=== PATIENT | male | born 1950 | race Caucasian/White ===

== ENCOUNTER 2017-01-01 15:58 | Inpatient (IN) | payer OTHER, MEDICARE ==
[2017-01-01] MEDS ORDERED: Sodium Chloride 0.9% 1,000 ML IV ONE ×2 (16:12→20:06)
--- NOTE | 2017-01-01 16:21 | ED Physician Chart ---
Chief Complaint/HPI - Patient Information Date Seen:: 01/01/17 Time Seen:: 16:14 Chief Complaint:: weakness History of Present Illness:: pt had a fall last week..had back pain over weekend. saw pmd friday and rxd prednisone and m relaxer meds. this afternoon legs feel weak. he has no cp. no WELLS. pt has hx of htn and a chf episode 6 yrs ago but no a fib hx and no known mi hx. 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 also t complains of percieved burning pain at rt hip radiates around to ant thigh cw sciatica pain Historian:: Patient Review of Systems - Review of Systems General/Constitutional: No fever, No chills, No weight loss, No weakness, No diaphoresis, No edema, No loss of appetite Skin: No skin lesions, No rash, No bruising Head: No headache, No light-headedness Eyes: No loss of vision, No pain, No diplopia ENT: No earache, No nasal drainage, No sore throat, No tinnitus Neck: No neck pain, No swelling, No thyromegaly, No stiffness, No mass noted Cardio Vascular: No chest pain, No palpitations, No PND, No orthopnea, No edema Pulmonary: No SOB, No cough, No sputum, No wheezing GI: No nausea, No vomiting, No diarrhea, No pain, No melena, No hematochezia, No constipation, No hematemesis G/U: No dysuria, No frequency, No hematuria Musculoskeletal: No bone or joint pain, No back pain, No muscle pain Endocrine: No polyuria, No polydipsia Psychiatric: No prior psych history, No depression, No anxiety, No suicidal ideation Hematopoietic: No bruising, No lymphadenopathy Allergic/Immuno: No urticaria, No angioedema Neurological: No syncope, No focal symptoms, Weakness, Paresthesia (chronic numbness in b legs), No headache, No seizure, Dizziness, No confusion, No vertigo Past Medical History - Past Medical History Past Medical History: HTN, CHF Social History: Medication: Reviewed Family Medical History - Family Member Mother History Unknown: Yes Physical Exam - Physical Examination General/Constitutional: Awake, Well-developed, well-nourished, Alert, No distress, GCS 15, Non-toxic appearing, Ambulatory Other Gen/Cons comments:: obese man appears ok at rest. monitor shows hr 160 regular narrow complex color ok. chronic paresthesia of distal legs/ft Head: Atraumatic Eyes: Lids, conjuctiva normal, PERRL, EOMI Skin: Nl inspection, No rash, No skin lesions, No ecchymosis, Well hydrated, No lymphadenopathy ENMT: External ears, nose nl, Nasal exam nl, Lips, teeth, gums nl Neck: Nontender, Full ROM w/o pain, No JVD, No nuchal rigidity, No bruit, No mass, No stridor Respiratory: Nl effort/Exclusion, Clear to Auscultation, No Wheeze/Rhonchi/Rales Cardio Vascular: RRR, No murmur, gallop, rubs, NL S1 S2 GI: No tenderness/rebounding/guarding, No organomegaly, No hernia, Normal BS's, Nondistended, No mass/bruits, No McBurney tenderness : No CVA tenderness Extremities: No tenderness or effusion, Full ROM, normal strength in all extremities, No edema, Normal digits & nails Other Extremities comments:: percieved pain at rt hip radiates around to ant thigh cw sciatica pain Neuro/Psych: Alert/oriented, DTR's symmetric, Normal sensory exam, Normal motor strength, Judgement/insight normal, Mood normal, Normal gait, No focal deficits Misc: normal gait, Normal back, No paraspinal tenderness Labs/Radiology/EKG Results - Lab Results Results: Laboratory Tests 01/01/17 01/01/17 01/01/17 16:25 16:25 16:25 WBC 8.9 RBC 5.46 Hgb 18.0 H Hct 52.0 H MCV 95.2 MCH 32.9 H MCHC Differential 34.6 RDW 13.2 Plt Count 128 L MPV 10.9 Neutrophils % 71.7 Lymphocytes % 21.6 Monocytes % 5.9 Eosinophils % 0.7 Basophils % 0.1 PT INR PTT (Actin FS) Sodium 137 Potassium 3.3 L Chloride 104 Carbon Dioxide 24.5 Anion Gap 11.8 BUN 31 H Creatinine 1.1 Est GFR ( Amer) > 60.0 Est GFR (Non-Af Amer) > 60.0 BUN/Creatinine Ratio 28.2 Glucose 120 H Calcium 9.9 Total Bilirubin 1.8 H AST 37 ALT 50 Alkaline Phosphatase 93 Troponin I 0.01 Total Protein 7.5 Albumin 4.2 Globulin 3.3 Albumin/Globulin Ratio 1.3 01/01/17 16:25 WBC RBC Hgb Hct MCV MCH MCHC Differential RDW Plt Count MPV Neutrophils % Lymphocytes % Monocytes % Eosinophils % Basophils % PT 13.6 H INR 1.29 PTT (Actin FS) 24.1 L Sodium Potassium Chloride Carbon Dioxide Anion Gap BUN Creatinine Est GFR ( Amer) Est GFR (Non-Af Amer) BUN/Creatinine Ratio Glucose Calcium Total Bilirubin AST ALT Alkaline Phosphatase Troponin I Total Protein Albumin Globulin Albumin/Globulin Ratio - Radiology Results Results: cxr nad - EKG Interpretations EKG Time:: 16:25 Rate & Rhythm: afib rvr 143 [place]: 224 Intervals: qtc 423 Assessment - Assessment Critical Care Time: 80 Excludes all billable procedures: Yes This condition life threatening/high prob of deterioration: Yes - Procedures Procedures:: adenosine 6mg iv while on monitor...then 12 adenosine iv...pt slowed rate enough to see underlying a fib. diltiazem bolus 20 and gtt at 5mg/hr ordered ....has improved rate down to 120s..pt tolerating this very well. (on further dw staff pt had been given 20 dilt bolus but gtt was not started due to code in other dept...rebolused 10 mg dilt and gtt started at 7;30pm)...pt doing well. ED Septic Shock - . Is Septic Shock (SBP<90, OR Lactate>4 mmol\L) present?: No Reassessment (Disposition) - Reassessment Reassessment Condition:: Improved - Diagnosis Diagnosis:: 1 afib w rvr 2 rt leg sciatic pain - Patient Disposition Admitted to:: ICU Condition at Disposition:: Improved
[2017-01-01 16:34] LABS: % BASOPHILS 0.1 % (0.0-2.0); % EOSINOPHILS 0.7 % (0.0-5.0); % LYMPHOCYTES 21.6 % (20.0-50.0); % MONOCYTES 5.9 % (2.0-10.0); % NEUTROPHILS 71.7 % (40.0-80.0); MEAN CELL VOLUME 95.2 fl (80-99); MEAN CORPUSCULAR HEMOGLOBIN 32.9 pg (27.0-31.0); MEAN CORPUSCULAR HGB CONC 34.6 pg (28.0-36.0); MEAN PLATELET VOLUME 10.9 fl; NEUTROPHILE ABSOLUTE 6.4 Th/cmm (1.8-8.0); PLATELET COUNT 128 Th/cmm (150-400); RED BLOOD COUNT 5.46 Mil/cmm (3.80-5.80); RED CELL DISTRIBUTION WIDTH 13.2 % (11.5-20.0); WHITE BLOOD COUNT 8.9 Th/cmm (4.8-10.8)
[2017-01-01 16:47] LABS: INR 1.29 (0.5-1.4); PROTHROMBIN TIME (TEST) 13.6 SECONDS (9.5-11.5)
[2017-01-01 16:50] LABS: ALB/GLOB RATIO 1.3 (1.0-1.8); ALKALINE PHOSPHATASE 93 U/L (34-104); ANION GAP 11.8 (7.0-16.0); BILIRUBIN,TOTAL 1.8 mg/dL (0.3-1.0); BUN - UREA NITROGEN 31 mg/dL (7-25); BUN/CREATININE RATIO 28.2; CALCIUM SERUM 9.9 mg/dL (8.6-10.3); CARBON DIOXIDE 24.5 mEq/L (21.0-31.0); CHLORIDE 104 mEq/L (98-107); CREATININE - SERUM 1.1 mg/dL (0.7-1.3); GLUCOSE 120 mg/dL (70-105); POTASSIUM SERUM 3.3 mEq/L (3.5-5.1); SGOT 37 U/L (13-39); SGPT/ALT 50 U/L (7-52); SODIUM SERUM 137 mEq/L (136-145)
[2017-01-01] MEDS ORDERED: Diltiazem 5 mg/mL 5mL Vial IVP STA ×2 (17:05→20:05)
[2017-01-01] MEDS ORDERED: Diltiazem 5 mg/mL 5mL Vial IVP ONE ×2 (17:52→20:11)
[2017-01-01] MEDS ORDERED: Diltiazem 5 mg/mL 25mL Vial IV ONE (20:07)
[2017-01-01] MEDS ORDERED: Morphine Sulfate 2 mg/mL 1mL Syr IVP PRN (20:20)
[2017-01-01] MEDS ORDERED: Diltiazem 5 mg/mL 5mL Vial IVP PRN (20:20)
[2017-01-01] MEDS ORDERED: Ipratropium Neb 0.5 mg/2.5 mL UD IH PRN (20:20)
[2017-01-01] MEDS ORDERED: Maalox 30 mL Cup PO PRN (20:20)
[2017-01-01] MEDS ORDERED: Potassium Chloride 20 mEq ER Tab PO ONE ×2 (20:20→20:44)
[2017-01-01] MEDS ORDERED: Albuterol Nebulizer 2.5mg/3mL IH PRN (20:20)
[2017-01-01] MEDS ORDERED: D5-0.45NS 1,000 ML IV SCH (20:30)
[2017-01-01] MEDS ORDERED: Pneumococcal Vaccine 0.5 mL Vial IM ONE (23:12)
[2017-01-02] MEDS: Hydrocodone/APAP 5mg/325mg Tab PO PRN ×3 (04:45→20:34)
[2017-01-02 06:05] LABS: % EOSINOPHILS 2.2 % (0.0-5.0); % LYMPHOCYTES 41.2 % (20.0-50.0); % MONOCYTES 9.6 % (2.0-10.0); HEMOGLOBIN 16.2 gm/dL (12.6-17.4); MEAN CELL VOLUME 93.9 fl (80-99); MEAN CORPUSCULAR HEMOGLOBIN 32.9 pg (27.0-31.0); MEAN PLATELET VOLUME 11.4 fl; NEUTROPHILE ABSOLUTE 2.3 Th/cmm (1.8-8.0); RED BLOOD COUNT 4.92 Mil/cmm (3.80-5.80); RED CELL DISTRIBUTION WIDTH 13.4 % (11.5-20.0)
[2017-01-02 06:43] LABS: ANION GAP 7.4 (7.0-16.0); BUN - UREA NITROGEN 26 mg/dL (7-25); BUN/CREATININE RATIO 23.6; CALCIUM SERUM 9.2 mg/dL (8.6-10.3); CARBON DIOXIDE 28.8 mEq/L (21.0-31.0); CHLORIDE 106 mEq/L (98-107); CREATININE - SERUM 1.1 mg/dL (0.7-1.3); GLUCOSE 93 mg/dL (70-105); MAGNESIUM 2.4 mg/dL (1.9-2.7); POTASSIUM SERUM 3.2 mEq/L (3.5-5.1); SODIUM SERUM 139 mEq/L (136-145)
[2017-01-02 07:24] LABS: HEMATOCRIT 46.2 % (39.0-49.0); PLATELET COUNT 80 Th/cmm (150-400)
--- NOTE | 2017-01-02 10:26 | Diagnostic Imaging Report ---
CHEST X-RAY: AP view INDICATION: Tachycardia COMPARISON: None FINDINGS: There is no focal consolidation or pleural effusions The heart is normal in size. The osseous structures demonstrate no acute abnormalities. IMPRESSION: No focal acute pulmonary process.
--- NOTE | 2017-01-02 10:37 | Diagnostic Imaging Report ---
Pelvis and right hip 2 views Indication: pain Comparison: none Findings: Note exam is limited due to body habitus. No evidence of acute fracture or dislocation. Mild degenerative changes right hip joint are noted. Degenerative changes of the SI joints are also noted. Impression: No evidence of an acute fracture. Mild degenerative changes. In the setting of trauma, if clinical symptoms persist and there is continued concern for an occult fracture, follow up exams in 5-7 days is suggested.
--- NOTE | 2017-01-02 15:34 | Diagnostic Imaging Report ---
CHEST X-RAY: AP view INDICATION: Sepsis COMPARISON: Chest x-ray 01/01/2017 FINDINGS: Suboptimal lung markings are seen with no focal consolidation or effusions. Mild cardiomegaly is noted. IMPRESSION: No focal consolidation identified. Mild cardiomegaly.
[2017-01-02] MEDS ORDERED: Potassium Chloride 20 mEq ER Tab PO ONE (15:40)
--- NOTE | 2017-01-02 19:01 | History & Physical ---
ADMIT DATE: 01/01/2017 CHIEF COMPLAINT: Right hip pain status post fall. HISTORY OF PRESENT ILLNESS: This is a 66-year-old male with history of hypertension, congestive heart failure, obesity, was admitted from home through the ER secondary to right hip pain secondary to fall. The patient was brought in the ER. There is no fracture. Heart rate was in the 160s. New onset atrial fibrillation. The patient denies chest pain this time. PAST MEDICAL HISTORY: As mentioned in history present illness. PAST SURGICAL HISTORY: Denies surgeries in the past. ALLERGIES: No known drug allergies. MEDICATIONS: Lasix, aspirin, benazepril, Coreg and Paxil. FAMILY HISTORY: Noncontributory. SOCIAL HISTORY: The patient smokes cigar, drinks on occasion beer mostly. No intravenous drug use. 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 He is with 2 children. REVIEW OF SYSTEMS: GENERAL: Complains of not feeling well. HEENT: No blurred vision. NECK: No neck pain. LUNGS: No diagnosis of COPD. The patient with shortness of breath. HEART: The patient has CHF and atrial fibrillation. ____ GA. ABDOMEN: No ____. GENITOURINARY: The patient denies increased frequency or dysuria. NEUROLOGIC: No headache, seizure or syncope. PSYCHIATRIC: As above. PHYSICAL EXAMINATION: VITAL SIGNS: Temperature 97.4, blood pressure is 104/____, respirations 14, pulse 80-130. GENERAL: Elderly male, appears stated age, mildly obese. NECK: Supple. RESPIRATORY: Decreased breath sounds, few rhonchi. CARDIOVASCULAR: Irregularly irregular home with faint systolic ejection murmur. ABDOMEN: Soft, nontender, globular. Positive bowel sounds. EXTREMITIES: Positive excoriations. NEUROLOGIC: Limited. LABORATORY DATA: WBC 5.0, hemoglobin 16, platelets 80. INR 1.29. Sodium 139, potassium 3.2, BUN 26, creatinine 1.1. Total bilirubin was 1.8. Troponin negative x 1. ASSESSMENT AND PLAN: Atrial fibrillation with rapid ventricular rate, right lower extremity pain, obesity, hypertension, congestive heart failure, chronic low back pain, hypokalemia, ____. We will correct electrolyte abnormalities. Continue him on beta gris. We will refer the patient to Cardiology. We will perform 2D echo. Case was discussed with the patient as well as the as well as with Dr. Wen Kaur. We will continue to monitor the patient closely. [facility]# [id number]
--- NOTE | 2017-01-02 20:43 | Cardiology ---
01/02/2017 M-MODE ECHOCARDIOGRAM: Mitral valve, anterior leaflet of mitral valve shows normal excursion, EF velocity. Posterior leaflet of mitral valve shows normal excursion. Left ventricular posterior wall shows increased thickness, normal excursion. Interventricular septum shows increased thickness, normal excursion, hypertrophy of the left ventricle, ejection fraction 60%. Left atrium enlarged 5.3 cm. Aortic root shows normal dimension, normal excursion of aortic leaflets. CONCLUSION: Hypertrophy of the left ventricle, left atrial enlargement, ejection fraction 60%. 2D ECHO: Long axis view showed normal sized left ventricle with hypertrophy of the left ventricle. Left atrium enlarged. Aortic root shows normal dimension, normal excursion of aortic leaflets. Short axis view of mitral valve normal. Short axis view of aortic valve normal. Apical four chamber view showed normal sized left ventricle with hypertrophy of the left ventricle. Left atrium enlarged. Right ventricular cavity normal. Right atrial enlargement. CONCLUSION: Left atrial enlargement. Right atrial enlargement. Hypertrophy of the left ventricle, ejection fraction 60%. Doppler study shows mild mitral regurgitation, prominent A wave consistent with poor compliance of left ventricle. [facility]# [id number]
[2017-01-03 04:58] LABS: HEMATOCRIT 45.3 % (39.0-49.0); HEMOGLOBIN 15.6 gm/dL (12.6-17.4); MEAN CELL VOLUME 95.6 fl (80-99); MEAN CORPUSCULAR HEMOGLOBIN 32.9 pg (27.0-31.0); MEAN CORPUSCULAR HGB CONC 34.4 pg (28.0-36.0); MEAN PLATELET VOLUME 11.4 fl; PLATELET COUNT 66 Th/cmm (150-400); RED BLOOD COUNT 4.74 Mil/cmm (3.80-5.80); RED CELL DISTRIBUTION WIDTH 13.4 % (11.5-20.0); WHITE BLOOD COUNT 4.1 Th/cmm (4.8-10.8)
[2017-01-03 06:02] LABS: ALB/GLOB RATIO 1.1 (1.0-1.8); ALKALINE PHOSPHATASE 74 U/L (34-104); ANION GAP 13.2 (7.0-16.0); BILIRUBIN,TOTAL 1.5 mg/dL (0.3-1.0); BUN - UREA NITROGEN 21 mg/dL (7-25); BUN/CREATININE RATIO 17.5; CALCIUM SERUM 8.9 mg/dL (8.6-10.3); CARBON DIOXIDE 29.7 mEq/L (21.0-31.0); CHLORIDE 105 mEq/L (98-107); CREATININE - SERUM 1.2 mg/dL (0.7-1.3); GLUCOSE 89 mg/dL (70-105); MAGNESIUM 2.4 mg/dL (1.9-2.7); POTASSIUM SERUM 3.9 mEq/L (3.5-5.1); SGOT 38 U/L (13-39); SGPT/ALT 50 U/L (7-52); SODIUM SERUM 144 mEq/L (136-145)
--- NOTE | 2017-01-03 06:25 | Admit Criteria Form ---
Admit Criteria Forms - Admit Criteria Diagnosis: ATRIAL FIBRILLATION Clinical Indications for Admission to Inpatient Care (Place 'X' for any and all applicable criteria): Admission indicated for ANY ONE of the following(1)(2)(3)(4)(5) : [ ]I. Myocardial ischemia [ ]II. Dyspnea or hypoxemia [ ]III. Hemodynamic instability [ ]IV. Heart failure (e.g., pulmonary edema) (7) [ ]V. New-onset (less than 48 hours) atrial fibrillation with high risk for causing complications secondary to comorbidities (eg, symptomatic heart failure) [ ]. Altered mental status [ ]VII. Syncope [ ]VIII. Patient has implantable cardioverter defibrillator that has fired more than once within past 24hr or needs immediate adjustment of settings that cannot be done other than in inpatient setting. (8) [ ]IX. Suspected accessory pathway (e.g., Fcact-Khhtverkx-Uzjom syndrome) on ECG [ ]X. Recent systemic thromboembolism (eg, stroke) [ ]XI. Medication toxicity (e.g., digitalis) causing arrhythmia(9) [ ]XII. Underlying medical condition that necessitates inpatient care (e.g., thyrotoxicosis, pneumonia) (10) [ ]XIII. Continuous ECG monitoring is required for condition causing arrhythmia (e.g., severe hyperkalemia, hypokalemia, acid-base disturbance).(11)(12)(13) [X ]XIV. Initiation of antiarrhythmic drug therapy is needed in patient at high risk of adverse effects as indicated by ANY ONE of the following: [ ]a) Significant structural heart disease (e.g., reduced ejection fraction, congenital heart disease, valvular heart disease) [ ]b) Prolonged QT interval [ ]c) Underlying sinus node or atrioventricular conduction disturbances [X ]d) Need for treatment with antiarrhythmic drugs that have significant proarrhythmic potential (e.g., dofetilide, sotalol, procainamide) [ ]e) Patient whose sinus rhythm has never been observed on ECG [ ]XV. Intolerable symptoms despite optimal outpatient treatment [ ]XVI. Elective or urgent cardioversion that cannot be performed on outpatient basis or during observation care. [A] (Use also Atrial Fibrillation: Observation Care ) as appropriate.(14) [ ]XVII.Contraindications and/or Inappropriate clinical situations for Observational Care in patients with Atrial Fibrillation, when ANY ONE of the following is required: [ ]a) Patient with High risk of cardiac embolism (e.g, patients with previous cardiac embolism, LVEF < 40%, age >75 and patients with prosthetic valve) 18 [ ]b) Patient with Moderate risk including DM patient, CAD and patient aged 65-75 18 [ ]c) Patient with any change in cardiac biomarker especially troponin should be managed as high risk in an inpatient setting 19 [ ]d) Physician judgement irrespective of ECG and other diagnostic findings 20 [ ]XVIII.General contraindications and/or Inappropriate clinical situations for Observational Care in patients with Atrial Fibrillation, when ANY ONE of the following is required: [ ]a) Prediction of prolongation of LOS based on ANY ONE of the following may be considered as a contraindication for observational care 2, 3, 4, 5, 6, 7, 8, 9, 10, 11 [ ]i) Age > 65 yrs. [ ]ii) Patient arriving by ambulance [ ]iii) Patient with high acuity [ ]iv) Patient requiring vital sign monitoring [ ]v) Patient on IV medication [ ]b) Systolic blood pressures 180mmHg 3,12 [ ]c) Patient with altered mental status including delirium and other alteration of consciousness3 [ ]d) Patient whose discharge disposition will be to a [facility] home or rehabilitation home should not be managed in Emergency Department Observation Unit. CMS rule requires 3 days hospital stay before such placement.3,13 [ ]e) Patient with failure to thrive due to broad array of etiologies 3,16,17 [ ]f) Inability to ambulate 3,14 Extended stay beyond goal length of stay may be needed for (1)(25)(26): [ ]a) Unstable comorbidities [ ]b) Persistently uncontrolled atrial fibrillation or other arrhythmias [ ]c) Acute thromboembolic event (e.g., stroke, limb ischemia) [ ]d) Need for inpatient attainment of full anticoagulation The original [employer] content created by [employer] has been revised. The portions of the content which have been revised are identified through the use of italic text or in bold, and [employer] has neither reviewed nor approved the modified material. All other unmodified content is copyright [employer]. Please see references footnoted in the original [employer] edition 2016 Admit Criteria Met?: Yes
[2017-01-03 07:14] LABS: EOSINOPHIL 13 % (0-5); NEUTROPHILS 43 % (40-80); PLATELET ESTIMATE DECREASED PLATELETS (NORMAL); TOTAL CELLS COUNTED 100
[2017-01-03 07:15] LABS: PLATELET MORPHOLOGY GIANT PLATELETS SEEN (NORMAL)
[2017-01-03] MEDS: Hydrocodone/APAP 5mg/325mg Tab PO PRN ×3 (08:31→23:37)
[2017-01-03] MEDS ORDERED: Probiotic Screen MC PRN (11:05)
--- NOTE | 2017-01-03 13:38 | Internal Medicine Prog Note ---
Internal Medicine Subjective - Subjective Patient seen and examined:: with staff, chart reviewed Patient is:: awake, verbal, interactive Patient Complaints of:: congestion, constipation Per staff patient is:: no adverse event, no episodes of fall, eating well, agitated Internal Medicine Objective - Results Result Diagrams: 01/03/17 04:35 01/03/17 04:35 Recent Labs: Laboratory Last Values WBC 4.1 Th/cmm (4.8-10.8) L 01/03/17 04:35 RBC 4.74 Mil/cmm (3.80-5.80) 01/03/17 04:35 Hgb 15.6 gm/dL (12.6-17.4) 01/03/17 04:35 Hct 45.3 % (39.0-49.0) 01/03/17 04:35 MCV 95.6 fl (80-99) 01/03/17 04:35 MCH 32.9 pg (27.0-31.0) H 01/03/17 04:35 MCHC Differential 34.4 pg (28.0-36.0) 01/03/17 04:35 RDW 13.4 % (11.5-20.0) 01/03/17 04:35 Plt Count 66 Th/cmm (150-400) L 01/03/17 04:35 MPV 11.4 fl 01/03/17 04:35 Neutrophils % 46.0 % (40.0-80.0) 01/02/17 05:19 Lymphocytes % 41.2 % (20.0-50.0) 01/02/17 05:19 Monocytes % 9.6 % (2.0-10.0) 01/02/17 05:19 Eosinophils % 2.2 % (0.0-5.0) 01/02/17 05:19 Basophils % 1.0 % (0.0-2.0) 01/02/17 05:19 Neutrophils (Manual) 43 % (40-80) 01/03/17 04:35 Lymphocytes 34 % (20-50) 01/03/17 04:35 Monocytes 10 % (2-10) 01/03/17 04:35 Eosinophils 13 % (0-5) H 01/03/17 04:35 Platelet Estimate DECREASED PLATELETS (NORMAL) 01/03/17 04:35 Platelet Morphology GIANT PLATELETS SEEN (NORMAL) 01/03/17 04:35 RBC Morph Micro Appear NORMAL (NORMAL) 01/03/17 04:35 PT 13.6 SECONDS (9.5-11.5) H 01/01/17 16:25 INR 1.29 (0.5-1.4) 01/01/17 16:25 PTT (Actin FS) 24.1 SECONDS (26.0-38.0) L 01/01/17 16:25 Sodium 144 mEq/L (136-145) 01/03/17 04:35 Potassium 3.9 mEq/L (3.5-5.1) 01/03/17 04:35 Chloride 105 mEq/L (98-107) 01/03/17 04:35 Carbon Dioxide 29.7 mEq/L (21.0-31.0) 01/03/17 04:35 Anion Gap 13.2 (7.0-16.0) 01/03/17 04:35 BUN 21 mg/dL (7-25) 01/03/17 04:35 Creatinine 1.2 mg/dL (0.7-1.3) 01/03/17 04:35 Est GFR ( Amer) > 60.0 ml/min (>90) 01/03/17 04:35 Est GFR (Non-Af Amer) > 60.0 ml/min 01/03/17 04:35 BUN/Creatinine Ratio 17.5 01/03/17 04:35 Glucose 89 mg/dL (70-105) 01/03/17 04:35 Calcium 8.9 mg/dL (8.6-10.3) 01/03/17 04:35 Magnesium 2.4 mg/dL (1.9-2.7) 01/03/17 04:35 Total Bilirubin 1.5 mg/dL (0.3-1.0) H 01/03/17 04:35 AST 38 U/L (13-39) 01/03/17 04:35 ALT 50 U/L (7-52) 01/03/17 04:35 Alkaline Phosphatase 74 U/L (34-104) 01/03/17 04:35 Troponin I 0.01 ng/mL (0.01-0.05) 01/01/17 16:25 B-Natriuretic Peptide 58.2 pg/mL (5.0-100.0) 01/03/17 04:35 Total Protein 6.3 gm/dL (6.0-8.3) 01/03/17 04:35 Albumin 3.3 gm/dL (4.2-5.5) L 01/03/17 04:35 Globulin 3.0 gm/dL 01/03/17 04:35 Albumin/Globulin Ratio 1.1 (1.0-1.8) 01/03/17 04:35 Vitamin B12 1258 pg/mL (211-946) H 01/02/17 05:19 Folic Acid 12.0 ng/mL (>3.0) 01/02/17 05:19 TSH 5.47 uIU/ml (0.34-5.60) 01/02/17 05:19 - Physical Exam Vitals and I&O: Vital Signs Temp 98.6 F 01/03/17 08:00 Pulse 107 01/03/17 10:00 Resp 26 01/03/17 10:00 BP 91/52 01/03/17 10:00 Pulse Ox 95 01/03/17 10:00 Intake & Output 01/02/17 01/03/17 01/03/17 18:59 06:59 18:59 Intake Total 650 150 150 Output Total 800 350 600 Balance -150 -200 -450 Intake: Oral 650 150 150 Output: Urine 800 350 600 Other: # Voids 3 1 # Bowel Movements 0 Active Medications: Current Medications Acetaminophen (Tylenol) 650 mg PO Q4HR PRN PRN Reason: Mild Pain Or Fever above 101 Stop: 03/02/17 20:19 Acetaminophen/Hydrocodone Bitart ([place] 5mg/325mg) 1 tab PO Q4H PRN PRN Reason: Pain (Severe) Stop: 03/02/17 20:19 Last Admin: 01/03/17 13:19 Dose: 1 tab Al Hydrox/Mg Hydrox/Simethicone (Maalox) 30 ml PO Q6HR PRN PRN Reason: Dyspepsia Stop: 03/02/17 20:19 Albuterol Sulfate (Albuterol 2.5mg/3ml Neb Ud) 2.5 mg IH Q2HR PRN PRN Reason: Shortness of Breath or Wheeze Stop: 03/02/17 20:19 Aspirin (Ecotrin) 81 mg PO DAILY [place] Stop: 03/03/17 08:59 Last Admin: 01/03/17 08:27 Dose: 81 mg Benazepril HCl (Lotensin) 5 mg PO DAILY [facility] Stop: 03/03/17 08:59 Last Admin: 01/03/17 08:27 Dose: 5 mg Clonidine HCl (Catapres) 0.1 mg PO Q6HR PRN PRN Reason: SBP GREATER THAN 160 Stop: 03/02/17 20:19 Cyclobenzaprine HCl (Flexeril) 10 mg PO TID [facility] Stop: 03/02/17 20:59 Last Admin: 01/03/17 13:19 Dose: 10 mg Diltiazem HCl (Cardizem) 20 mg IVP Q4H PRN PRN Reason: HR Greater than 130 per min Stop: 03/02/17 20:19 Diltiazem HCl 125 mg/ Dextrose 125 mls @ 5 mls/hr IV TITR [place]; 5 MG/HR PRN Reason: Protocol Stop: 03/02/17 17:14 Last Admin: 01/01/17 20:15 Dose: 5 mg/hr, 5 mls/hr Ipratropium [place] (Atrovent Neb 0.5mg/2.5ml) 0.5 mg IH Q2HR PRN PRN Reason: Shortness of Breath or Wheeze Stop: 03/02/17 20:19 Lactobacillus Rhamnosus (Culturelle) 1 each PO DAILY [facility] Stop: 03/05/17 08:59 Miscellaneous (Probiotic Screen) 1 ea MC PRN PRN PRN Reason: PROTOCOL Stop: 03/04/17 11:04 Morphine Sulfate (Morphine) 2 mg IVP Q4HR PRN PRN Reason: Pain (Moderate) Stop: 03/02/17 20:19 Ondansetron HCl (Zofran) 4 mg IV Q8H PRN PRN Reason: Nausea / Vomiting Stop: 03/02/17 20:19 Rivaroxaban (Xarelto) 20 mg PO DAILY [facility] Stop: 03/04/17 08:59 Last Admin: 01/03/17 08:30 Dose: 20 mg Zolpidem Tartrate (Ambien) 10 mg PO HS PRN PRN Reason: Insomnia Stop: 03/02/17 20:19 General: alert HEENT: NC/AT, PERRLA, EOMI Neck: Supple, other (obese) Lungs: congested Cardiovascular: RRR, Normal S1 Abdomen: soft non-tender, globular Extremities: edema Neurological: alert Internal Medicine Assmt/Plan - Assessment Assessment: Atrial fibrillation with rapid ventricular rate, right lower extremity pain, obesity, hypertension, congestive heart failure, chronic low back pain, hypokalemia, - Plan Plan: will add digoxin and adjust coreg cont on cardizem drip o2 bronchodilator out of bed 2 d echo noted dw rn Nutritional Asmnt/Malnutr-PDOC - Dietary Evaluation Malnutrition Findings (Please click <Entered> for more info): Nutritional Asmnt/Malnutrition Start: 01/02/17 14: 29 Text: Status: Complete Freq: Document 01/02/17 14:29 GSUN (Rec: 01/02/17 14:51 [id number] [id number]) Nutritional Asmnt/Malnutrition Patient General Information Nutritional Screening High Risk Screening Diagnosis ER: AFib with rapid ventricular rate, right leg sciatic pain Pertinent Medical Hx/Surgical Hx ER: HTN, CHF Subjective Information 66 year old male. Pt was alert and pleasant. Pt stated he is 4months into a 6months prep josiah with professional meal advices for a bariatric surgery at the end of the course. Observed breakfast tray half untouched at bedside , pt stated appetite usually good, currently poor PO due to pain. Pt appeared knowledgeable in nutrition and complient with his meal plan. RD encouraged PO intake while in the hospital, pt agreed. CBW via bedscale 336.5lb, pt report UBW 1wk ago 335lb. Current Diet Order/ Nutrition Support Cardiac Pertinent Medications Maalox, D5 0.45, Morphine, Zofran Pertinent Labs 01/01: total bilirubin 1.8H Nutritional Hx/Data Height 1.85 m Height (Calculated Centimeters) 185.4 Current Weight (lbs) 152.634 kg Weight (Calculated Kilograms) 152.6 Weight (Calculated Grams) 156242.8 Usual body Weight (lbs) 335 [place] Body Weight 184 Weight Status Morbidly Obese GI Symptoms Food Allergies No Skin Integrity/Comment: Haris Kim. Skin intact. Estimated Nutritional Goals BEE in Kcals: Adj wt of IBW Calories/Kcals/Kg AdjBW 222lb/100.9kg Kcals Calculated 2523kcal (25kcal/kg) Protein: Adj wt of IBW Protein Calculated 81-101g (0.8-1g/kg) Fluid: ml 2523ml (1ml/kcal) Nutritional Problem 1. Problem Problem Obesity related to Etiology possible energy imbalance aeb Signs/Symptoms: BMI >40, pt is on a meal plan for bariatric surgery Intervention/Recommendation Comments 1. Continue with cardiac diet. Current diet order provides to meet at least 75% of estimated nutritional needs. Pt may request for snacks as needed as long as complient with diet order. Expected Outcomes/Goals Expected Outcomes/Goals 1. PO intake to meet at least 75% of estimated nutritional needs.
--- NOTE | 2017-01-03 19:09 | Consultation ---
DATE OF CONSULTATION: 01/02/[address] Schmidt. HISTORY AND PHYSICAL: This 66 years old morbidly obese male patient who was brought to the Emergency Room complaining of palpitation. The patient was found to have atrial fibrillation with rapid ventricular response at the rate of 160. The patient was given Cardizem, the patient converted to normal sinus rhythm. Following this, the patient is admitted. Cardiology consult is requested. PAST MEDICAL HISTORY: Hypertension, congestive heart failure, diastolic dysfunction, acute; obesity, chronic low back pain, hypokalemia. FAMILY HISTORY: Unremarkable. SOCIAL HISTORY: No history of smoking, alcohol abuse. ALLERGIES: None. PHYSICAL EXAMINATION: VITAL SIGNS: Blood pressure 130/80, pulse 150, respirations 20. HEAD: Normocephalic. No lumps or bumps. EYES: Pupils equal, reactive to light. Fundi show AV nicking, sclerae white, conjunctivae pink. NECK: Carotid 2+. Normal upstroke. JVD 10 cm above sternal angle. Thyroid not palpable. Lymph nodes not palpable. CHEST: Shows increased AP diameter. No kyphosis or scoliosis. LUNGS: Bilateral bronchovesicular breath sounds. HEART: PMI fifth intercostal space with lateral to midclavicular line. S1, S2, S3, S4. S1 irregular. Systolic murmur, grade 2/6, lower left sternal border without radiation. ABDOMEN: Soft. Liver and spleen not palpable. No organomegaly. Bowel sounds are active. NEUROLOGIC: Unremarkable. EXTREMITIES: Peripheral pulses 2+. No pedal edema. CLINICAL IMPRESSION: Paroxysmal atrial fibrillation, hypertension, congestive heart failure, diastolic dysfunction, acute; obesity, chronic low back pain, hypokalemia. PLAN: We will control the heart rate, anticoagulate the patient, potassium supplement, and echocardiogram. [facility]# [id number]
[2017-01-04 05:02] LABS: URINE BILIRUBIN NEGATIVE (NEGATIVE); URINE BLOOD NEGATIVE (NEGATIVE); URINE COLOR DARK YELLOW; URINE GLUCOSE (UA) NEGATIVE (NEGATIVE); URINE KETONE NEGATIVE (NEGATIVE); URINE PROTEIN NEGATIVE (NEGATIVE)
[2017-01-04 05:03] LABS: URINE BACTERIA FEW /hpf (NONE SEEN); URINE EPITHELIAL CELLS FEW /lpf (FEW); URINE RBC NONE SEEN /hpf (0-5); URINE WBC 0-2 /hpf (0-5)
[2017-01-04] MEDS: Lactobacillus Rhamnosus 10 Billion CFU Capsule PO SCH (08:46)
[2017-01-04] MEDS ORDERED: Magnesium Hydroxide (MOM) 30 mL UDC PO PRN (14:06)
[2017-01-04] MEDS: Hydrocodone/APAP 5mg/325mg Tab PO PRN (21:33)
--- NOTE | 2017-01-04 23:47 | Discharge Summary ---
DATE OF DISCHARGE: 01/04/2017 CHIEF COMPLAINT: Right hip pain, status post fall. FINAL DIAGNOSES: Atrial fibrillation with rapid ventricular rate, better controlled, right lower extremity pain/sciatica, obesity, hypertension, congestive heart failure, chronic low back pain, hypokalemia, electrolyte abnormalities, morbid obesity. HISTORY: This is a 66-year-old male with history of CHF, morbid obesity, chronic low back pain, was admitted through the ER secondary to status post fall. The patient noted to be in atrial fibrillation with rapid ventricular rate at 160. The patient admitted for further management. PHYSICAL EXAMINATION: VITAL SIGNS: Blood pressure ____, respirations 17, pulse 99 to 106, temperature 98. GENERAL: Elderly male, morbidly obese. NECK: Supple. No mass. LUNGS: Equal breath sounds, few rhonchi. HEART: Irregularly regular with a systolic ejection murmur. ABDOMEN: Soft, globular, positive bowel sound, and obese. EXTREMITIES: Positive excoriations ____. NEUROLOGIC: Limited, moving 4 extremities. LABORATORY DATA: Were noted. HOSPITAL COURSE: The patient was admitted to ICU and was started on cortisone drip. The patient was referred to Dr. Wen Kaur for Cardiology, 2D echo, ____. The patient also continued on anticoagulation. The patient's condition has been stabilized, digoxin was added. The patient's heart rate seemed to be better controlled. CONDITION ON DISCHARGE: Fair. DISCHARGE INSTRUCTIONS: The patient to continue current regimen. The patient to be followed by Dr. Schmidt on outpatient basis. 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 JOB# [id number]
[2017-01-05] MEDS: Lactobacillus Rhamnosus 10 Billion CFU Capsule PO SCH (09:15)
--- NOTE | 2017-01-05 15:09 | Internal Medicine Prog Note ---
Internal Medicine Subjective - Subjective Patient seen and examined:: with staff, chart reviewed Patient is:: awake, verbal, interactive Patient Complaints of:: congestion Per staff patient is:: no adverse event, no episodes of fall, eating well, unstable gait Internal Medicine Objective - Results Result Diagrams: 01/03/17 04:35 01/03/17 04:35 Recent Labs: Laboratory Last Values WBC 4.1 Th/cmm (4.8-10.8) L 01/03/17 04:35 RBC 4.74 Mil/cmm (3.80-5.80) 01/03/17 04:35 Hgb 15.6 gm/dL (12.6-17.4) 01/03/17 04:35 Hct 45.3 % (39.0-49.0) 01/03/17 04:35 MCV 95.6 fl (80-99) 01/03/17 04:35 MCH 32.9 pg (27.0-31.0) H 01/03/17 04:35 MCHC Differential 34.4 pg (28.0-36.0) 01/03/17 04:35 RDW 13.4 % (11.5-20.0) 01/03/17 04:35 Plt Count 66 Th/cmm (150-400) L 01/03/17 04:35 MPV 11.4 fl 01/03/17 04:35 Neutrophils % 46.0 % (40.0-80.0) 01/02/17 05:19 Lymphocytes % 41.2 % (20.0-50.0) 01/02/17 05:19 Monocytes % 9.6 % (2.0-10.0) 01/02/17 05:19 Eosinophils % 2.2 % (0.0-5.0) 01/02/17 05:19 Basophils % 1.0 % (0.0-2.0) 01/02/17 05:19 Neutrophils (Manual) 43 % (40-80) 01/03/17 04:35 Lymphocytes 34 % (20-50) 01/03/17 04:35 Monocytes 10 % (2-10) 01/03/17 04:35 Eosinophils 13 % (0-5) H 01/03/17 04:35 Platelet Estimate DECREASED PLATELETS (NORMAL) 01/03/17 04:35 Platelet Morphology GIANT PLATELETS SEEN (NORMAL) 01/03/17 04:35 RBC Morph Micro Appear NORMAL (NORMAL) 01/03/17 04:35 PT 13.6 SECONDS (9.5-11.5) H 01/01/17 16:25 INR 1.29 (0.5-1.4) 01/01/17 16:25 PTT (Actin FS) 24.1 SECONDS (26.0-38.0) L 01/01/17 16:25 Sodium 144 mEq/L (136-145) 01/03/17 04:35 Potassium 3.9 mEq/L (3.5-5.1) 01/03/17 04:35 Chloride 105 mEq/L (98-107) 01/03/17 04:35 Carbon Dioxide 29.7 mEq/L (21.0-31.0) 01/03/17 04:35 Anion Gap 13.2 (7.0-16.0) 01/03/17 04:35 BUN 21 mg/dL (7-25) 01/03/17 04:35 Creatinine 1.2 mg/dL (0.7-1.3) 01/03/17 04:35 Est GFR ( Amer) > 60.0 ml/min (>90) 01/03/17 04:35 Est GFR (Non-Af Amer) > 60.0 ml/min 01/03/17 04:35 BUN/Creatinine Ratio 17.5 01/03/17 04:35 Glucose 89 mg/dL (70-105) 01/03/17 04:35 Calcium 8.9 mg/dL (8.6-10.3) 01/03/17 04:35 Magnesium 2.4 mg/dL (1.9-2.7) 01/03/17 04:35 Total Bilirubin 1.5 mg/dL (0.3-1.0) H 01/03/17 04:35 AST 38 U/L (13-39) 01/03/17 04:35 ALT 50 U/L (7-52) 01/03/17 04:35 Alkaline Phosphatase 74 U/L (34-104) 01/03/17 04:35 Troponin I 0.01 ng/mL (0.01-0.05) 01/01/17 16:25 B-Natriuretic Peptide 58.2 pg/mL (5.0-100.0) 01/03/17 04:35 Total Protein 6.3 gm/dL (6.0-8.3) 01/03/17 04:35 Albumin 3.3 gm/dL (4.2-5.5) L 01/03/17 04:35 Globulin 3.0 gm/dL 01/03/17 04:35 Albumin/Globulin Ratio 1.1 (1.0-1.8) 01/03/17 04:35 Vitamin B12 1258 pg/mL (211-946) H 01/02/17 05:19 Folic Acid 12.0 ng/mL (>3.0) 01/02/17 05:19 TSH 5.47 uIU/ml (0.34-5.60) 01/02/17 05:19 Urine Source RANDOM 01/04/17 04:15 Urine Color DARK YELLOW 01/04/17 04:15 Urine Clarity CLEAR (CLEAR) 01/04/17 04:15 Urine pH 6.0 01/04/17 04:15 Ur Specific [place] 1.020 (1.005-1.030) 01/04/17 04:15 Urine Protein NEGATIVE mg/dL (NEGATIVE) 01/04/17 04:15 Urine Glucose (UA) NEGATIVE mg/dL (NEGATIVE) 01/04/17 04:15 Urine Ketones NEGATIVE mg/dL (NEGATIVE) 01/04/17 04:15 Urine Blood NEGATIVE (NEGATIVE) 01/04/17 04:15 Urine Nitrate NEGATIVE (NEGATIVE) 01/04/17 04:15 Urine Bilirubin NEGATIVE (NEGATIVE) 01/04/17 04:15 Urine Urobilinogen 4.0 E.U./dL (0.2 - 1.0) H 01/04/17 04:15 Ur Leukocyte Esterase NEGATIVE (NEGATIVE) 01/04/17 04:15 Urine RBC NONE SEEN /hpf (0-5) 01/04/17 04:15 Urine WBC 0-2 /hpf (0-5) 01/04/17 04:15 Ur Epithelial Cells FEW /lpf (FEW) 01/04/17 04:15 Urine Bacteria FEW /hpf (NONE SEEN) 01/04/17 04:15 - Physical Exam Vitals and I&O: Vital Signs Temp 97.2 F 01/05/17 08:00 Pulse 74 01/05/17 09:22 Resp 18 01/05/17 08:12 BP 121/65 01/05/17 09:18 Pulse Ox 96 01/05/17 08:12 Intake & Output 01/04/17 01/05/17 01/05/17 18:59 06:59 18:59 Intake Total 1250 Output Total 900 Balance 350 Intake: Oral 1250 Output: Urine 900 Other: # Voids 2 # Bowel Movements 0 Active Medications: Current Medications Acetaminophen (Tylenol) 650 mg PO Q4HR PRN PRN Reason: Mild Pain Or Fever above 101 Stop: 03/02/17 20:19 Acetaminophen/Hydrocodone Bitart ([place] 5mg/325mg) 1 tab PO Q4H PRN PRN Reason: Pain (Severe) Stop: 03/02/17 20:19 Last Admin: 01/04/17 21:33 Dose: 1 tab Al Hydrox/Mg Hydrox/Simethicone (Maalox) 30 ml PO Q6HR PRN PRN Reason: Dyspepsia Stop: 03/02/17 20:19 Albuterol Sulfate (Albuterol 2.5mg/3ml Neb Ud) 2.5 mg IH Q2HR PRN PRN Reason: Shortness of Breath or Wheeze Stop: 03/02/17 20:19 Alprazolam (Xanax) 0.25 mg PO Q8HR PRN; Protocol PRN Reason: Anxiety Stop: 03/04/17 13:33 Last Admin: 01/03/17 14:32 Dose: 0.25 mg Amiodarone HCl (Cordarone) 200 mg PO BID [facility] Stop: 03/04/17 16:59 Last Admin: 01/05/17 09:15 Dose: 200 mg Aspirin (Ecotrin) 81 mg PO DAILY [facility] Stop: 03/03/17 08:59 Last Admin: 01/05/17 09:15 Dose: 81 mg Benazepril HCl (Lotensin) 5 mg PO DAILY [facility] Stop: 03/03/17 08:59 Last Admin: 01/05/17 09:16 Dose: 5 mg Carvedilol (Coreg) 6.25 mg PO BID [facility] Stop: 03/04/17 13:33 Last Admin: 01/05/17 09:18 Dose: 3.125 mg Clonidine HCl (Catapres) 0.1 mg PO Q6HR PRN PRN Reason: SBP GREATER THAN 160 Stop: 03/02/17 20:19 Cyclobenzaprine HCl (Flexeril) 10 mg PO TID [place] Stop: 03/02/17 20:59 Last Admin: 01/05/17 14:54 Dose: 10 mg Digoxin (Lanoxin) 0.25 mg IVP DAILY [facility] Stop: 03/04/17 13:34 Last Admin: 01/05/17 09:22 Dose: Not Given Diltiazem HCl (Cardizem) 20 mg IVP Q4H PRN PRN Reason: HR Greater than 130 per min Stop: 03/02/17 20:19 Diltiazem HCl 125 mg/ Dextrose 125 mls @ 5 mls/hr IV TITR [place]; 5 MG/HR PRN Reason: Protocol Stop: 03/02/17 17:14 Last Admin: 01/01/17 20:15 Dose: 5 mg/hr, 5 mls/hr Ipratropium [place] (Atrovent Neb 0.5mg/2.5ml) 0.5 mg IH Q2HR PRN PRN Reason: Shortness of Breath or Wheeze Stop: 03/02/17 20:19 Lactobacillus Rhamnosus (Culturelle) 1 each PO DAILY [facility] Stop: 03/05/17 08:59 Last Admin: 01/05/17 09:15 Dose: 1 each Magnesium Hydroxide (Milk Of Magnesia) 60 ml PO HS PRN PRN Reason: Constipation Stop: 03/05/17 14:05 Miscellaneous (Probiotic Screen) 1 ea MC PRN PRN PRN Reason: PROTOCOL Stop: 03/04/17 11:04 Morphine Sulfate (Morphine) 2 mg IVP Q4HR PRN PRN Reason: Pain (Moderate) Stop: 03/02/17 20:19 Ondansetron HCl (Zofran) 4 mg IV Q8H PRN PRN Reason: Nausea / Vomiting Stop: 03/02/17 20:19 Rivaroxaban (Xarelto) 20 mg PO DAILY [facility] Stop: 03/04/17 08:59 Last Admin: 01/05/17 09:17 Dose: 20 mg Zolpidem Tartrate (Ambien) 10 mg PO HS PRN PRN Reason: Insomnia Stop: 03/02/17 20:19 General: alert HEENT: NC/AT, PERRLA Neck: Supple, No JVD, + JVD Lungs: congested, rales, ronchi Cardiovascular: RRR, Normal S1, Normal S2 Abdomen: soft non-tender, globular, positive bowel sound Extremities: excoriation, contracture Neurological: no change, unsteady Internal Medicine Assmt/Plan - Assessment Assessment: Atrial fibrillation with rapid ventricular rate, right lower extremity pain, obesity, hypertension, congestive heart failure, chronic low back pain, hypokalemia, - Plan Plan: will add digoxin and adjust coreg cont on cardizem drip o2 bronchodilator out of bed 2 d echo noted dw rn Nutritional Asmnt/Malnutr-PDOC - Dietary Evaluation Malnutrition Findings (Please click <Entered> for more info): Nutritional Asmnt/Malnutrition Start: 01/02/17 14: 29 Text: Status: Complete Freq: Document 01/02/17 14:29 GSUN (Rec: 01/02/17 14:51 [id number]) Nutritional Asmnt/Malnutrition Patient General Information Nutritional Screening High Risk Screening Diagnosis ER: AFib with rapid ventricular rate, right leg sciatic pain Pertinent Medical Hx/Surgical Hx ER: HTN, CHF Subjective Information 66 year old male. Pt was alert and pleasant. Pt stated he is 4months into a 6months prep josiah with professional meal advices for a bariatric surgery at the end of the course. Observed breakfast tray half untouched at bedside , pt stated appetite usually good, currently poor PO due to pain. Pt appeared knowledgeable in nutrition and complient with his meal plan. RD encouraged PO intake while in the hospital, pt agreed. CBW via bedscale 336.5lb, pt report UBW 1wk ago 335lb. Current Diet Order/ Nutrition Support Cardiac Pertinent Medications Maalox, D5 0.45, Morphine, Zofran Pertinent Labs 01/01: total bilirubin 1.8H Nutritional Hx/Data Height 1.85 m Height (Calculated Centimeters) 185.4 Current Weight (lbs) 152.634 kg Weight (Calculated Kilograms) 152.6 Weight (Calculated Grams) 373714.8 Usual body Weight (lbs) 335 [place] Body Weight 184 Weight Status Morbidly Obese GI Symptoms Food Allergies No Skin Integrity/Comment: Haris 19. Skin intact. Estimated Nutritional Goals BEE in Kcals: Adj wt of IBW Calories/Kcals/Kg AdjBW 222lb/100.9kg Kcals Calculated 2523kcal (25kcal/kg) Protein: Adj wt of IBW Protein Calculated 81-101g (0.8-1g/kg) Fluid: ml 2523ml (1ml/kcal) Nutritional Problem 1. Problem Problem Obesity related to Etiology possible energy imbalance aeb Signs/Symptoms: BMI >40, pt is on a meal plan for bariatric surgery Intervention/Recommendation Comments 1. Continue with cardiac diet. Current diet order provides to meet at least 75% of estimated nutritional needs. Pt may request for snacks as needed as long as complient with diet order. Expected Outcomes/Goals Expected Outcomes/Goals 1. PO intake to meet at least 75% of estimated nutritional needs.
[2017-01-05] MEDS: Hydrocodone/APAP 5mg/325mg Tab PO PRN (20:33)
[2017-01-06] MEDS: Lactobacillus Rhamnosus 10 Billion CFU Capsule PO SCH (08:22)
--- NOTE | 2017-01-06 13:04 | Internal Medicine Prog Note ---
Internal Medicine Subjective - Subjective Patient seen and examined:: other (addendum to dc summaries) Patient is:: awake, verbal, interactive Patient Complaints of:: congestion Per staff patient is:: no adverse event, no episodes of fall, eating well Internal Medicine Objective - Results Result Diagrams: 01/03/17 04:35 01/03/17 04:35 Recent Labs: Laboratory Last Values WBC 4.1 Th/cmm (4.8-10.8) L 01/03/17 04:35 RBC 4.74 Mil/cmm (3.80-5.80) 01/03/17 04:35 Hgb 15.6 gm/dL (12.6-17.4) 01/03/17 04:35 Hct 45.3 % (39.0-49.0) 01/03/17 04:35 MCV 95.6 fl (80-99) 01/03/17 04:35 MCH 32.9 pg (27.0-31.0) H 01/03/17 04:35 MCHC Differential 34.4 pg (28.0-36.0) 01/03/17 04:35 RDW 13.4 % (11.5-20.0) 01/03/17 04:35 Plt Count 66 Th/cmm (150-400) L 01/03/17 04:35 MPV 11.4 fl 01/03/17 04:35 Neutrophils % 46.0 % (40.0-80.0) 01/02/17 05:19 Lymphocytes % 41.2 % (20.0-50.0) 01/02/17 05:19 Monocytes % 9.6 % (2.0-10.0) 01/02/17 05:19 Eosinophils % 2.2 % (0.0-5.0) 01/02/17 05:19 Basophils % 1.0 % (0.0-2.0) 01/02/17 05:19 Neutrophils (Manual) 43 % (40-80) 01/03/17 04:35 Lymphocytes 34 % (20-50) 01/03/17 04:35 Monocytes 10 % (2-10) 01/03/17 04:35 Eosinophils 13 % (0-5) H 01/03/17 04:35 Platelet Estimate DECREASED PLATELETS (NORMAL) 01/03/17 04:35 Platelet Morphology GIANT PLATELETS SEEN (NORMAL) 01/03/17 04:35 RBC Morph Micro Appear NORMAL (NORMAL) 01/03/17 04:35 PT 13.6 SECONDS (9.5-11.5) H 01/01/17 16:25 INR 1.29 (0.5-1.4) 01/01/17 16:25 PTT (Actin FS) 24.1 SECONDS (26.0-38.0) L 01/01/17 16:25 Sodium 144 mEq/L (136-145) 01/03/17 04:35 Potassium 3.9 mEq/L (3.5-5.1) 01/03/17 04:35 Chloride 105 mEq/L (98-107) 01/03/17 04:35 Carbon Dioxide 29.7 mEq/L (21.0-31.0) 01/03/17 04:35 Anion Gap 13.2 (7.0-16.0) 01/03/17 04:35 BUN 21 mg/dL (7-25) 01/03/17 04:35 Creatinine 1.2 mg/dL (0.7-1.3) 01/03/17 04:35 Est GFR ( Amer) > 60.0 ml/min (>90) 01/03/17 04:35 Est GFR (Non-Af Amer) > 60.0 ml/min 01/03/17 04:35 BUN/Creatinine Ratio 17.5 01/03/17 04:35 Glucose 89 mg/dL (70-105) 01/03/17 04:35 Calcium 8.9 mg/dL (8.6-10.3) 01/03/17 04:35 Magnesium 2.4 mg/dL (1.9-2.7) 01/03/17 04:35 Total Bilirubin 1.5 mg/dL (0.3-1.0) H 01/03/17 04:35 AST 38 U/L (13-39) 01/03/17 04:35 ALT 50 U/L (7-52) 01/03/17 04:35 Alkaline Phosphatase 74 U/L (34-104) 01/03/17 04:35 Troponin I 0.01 ng/mL (0.01-0.05) 01/01/17 16:25 B-Natriuretic Peptide 58.2 pg/mL (5.0-100.0) 01/03/17 04:35 Total Protein 6.3 gm/dL (6.0-8.3) 01/03/17 04:35 Albumin 3.3 gm/dL (4.2-5.5) L 01/03/17 04:35 Globulin 3.0 gm/dL 01/03/17 04:35 Albumin/Globulin Ratio 1.1 (1.0-1.8) 01/03/17 04:35 Vitamin B12 1258 pg/mL (211-946) H 01/02/17 05:19 Folic Acid 12.0 ng/mL (>3.0) 01/02/17 05:19 TSH 5.47 uIU/ml (0.34-5.60) 01/02/17 05:19 Urine Source RANDOM 01/04/17 04:15 Urine Color DARK YELLOW 01/04/17 04:15 Urine Clarity CLEAR (CLEAR) 01/04/17 04:15 Urine pH 6.0 01/04/17 04:15 Ur Specific [place] 1.020 (1.005-1.030) 01/04/17 04:15 Urine Protein NEGATIVE mg/dL (NEGATIVE) 01/04/17 04:15 Urine Glucose (UA) NEGATIVE mg/dL (NEGATIVE) 01/04/17 04:15 Urine Ketones NEGATIVE mg/dL (NEGATIVE) 01/04/17 04:15 Urine Blood NEGATIVE (NEGATIVE) 01/04/17 04:15 Urine Nitrate NEGATIVE (NEGATIVE) 01/04/17 04:15 Urine Bilirubin NEGATIVE (NEGATIVE) 01/04/17 04:15 Urine Urobilinogen 4.0 E.U./dL (0.2 - 1.0) H 01/04/17 04:15 Ur Leukocyte Esterase NEGATIVE (NEGATIVE) 01/04/17 04:15 Urine RBC NONE SEEN /hpf (0-5) 01/04/17 04:15 Urine WBC 0-2 /hpf (0-5) 01/04/17 04:15 Ur Epithelial Cells FEW /lpf (FEW) 01/04/17 04:15 Urine Bacteria FEW /hpf (NONE SEEN) 01/04/17 04:15 - Physical Exam Vitals and I&O: Vital Signs Temp 97.6 F 01/06/17 12:00 Pulse 103 01/06/17 12:00 Resp 20 01/06/17 12:00 BP 135/92 01/06/17 12:00 Pulse Ox 99 01/06/17 12:00 Intake & Output 01/05/17 01/06/17 01/06/17 18:59 06:59 18:59 Intake Total 500 50 Balance 500 50 Intake: Oral 500 50 Other: # Voids 3 2 # Bowel Movements 0 0 Active Medications: Current Medications Acetaminophen (Tylenol) 650 mg PO Q4HR PRN PRN Reason: Mild Pain Or Fever above 101 Stop: 03/02/17 20:19 Acetaminophen/Hydrocodone Bitart ([place] 5mg/325mg) 1 tab PO Q4H PRN PRN Reason: Pain (Severe) Stop: 03/02/17 20:19 Last Admin: 01/05/17 20:33 Dose: 1 tab Al Hydrox/Mg Hydrox/Simethicone (Maalox) 30 ml PO Q6HR PRN PRN Reason: Dyspepsia Stop: 03/02/17 20:19 Albuterol Sulfate (Albuterol 2.5mg/3ml Neb Ud) 2.5 mg IH Q2HR PRN PRN Reason: Shortness of Breath or Wheeze Stop: 03/02/17 20:19 Alprazolam (Xanax) 0.25 mg PO Q8HR PRN; Protocol PRN Reason: Anxiety Stop: 03/04/17 13:33 Last Admin: 01/03/17 14:32 Dose: 0.25 mg Amiodarone HCl (Cordarone) 200 mg PO BID [facility] Stop: 03/04/17 16:59 Last Admin: 01/06/17 08:23 Dose: 200 mg Aspirin (Ecotrin) 81 mg PO DAILY [facility] Stop: 03/03/17 08:59 Last Admin: 01/06/17 08:22 Dose: 81 mg Benazepril HCl (Lotensin) 5 mg PO DAILY [facility] Stop: 03/03/17 08:59 Last Admin: 01/06/17 08:25 Dose: Not Given Carvedilol (Coreg) 6.25 mg PO BID [facility] Stop: 03/04/17 13:33 Last Admin: 01/06/17 08:26 Dose: Not Given Clonidine HCl (Catapres) 0.1 mg PO Q6HR PRN PRN Reason: SBP GREATER THAN 160 Stop: 03/02/17 20:19 Cyclobenzaprine HCl (Flexeril) 10 mg PO TID [facility] Stop: 03/02/17 20:59 Last Admin: 01/06/17 08:23 Dose: 10 mg Digoxin (Lanoxin) 0.125 mg PO DAILY [facility] Stop: 03/07/17 08:59 Last Admin: 01/06/17 08:23 Dose: 0.125 mg Diltiazem HCl (Cardizem) 20 mg IVP Q4H PRN PRN Reason: HR Greater than 130 per min Stop: 03/02/17 20:19 Diltiazem HCl 125 mg/ Dextrose 125 mls @ 5 mls/hr IV TITR [place]; 5 MG/HR PRN Reason: Protocol Stop: 03/02/17 17:14 Last Admin: 01/01/17 20:15 Dose: 5 mg/hr, 5 mls/hr Ipratropium [place] (Atrovent Neb 0.5mg/2.5ml) 0.5 mg IH Q2HR PRN PRN Reason: Shortness of Breath or Wheeze Stop: 03/02/17 20:19 Lactobacillus Rhamnosus (Culturelle) 1 each PO DAILY [facility] Stop: 03/05/17 08:59 Last Admin: 01/06/17 08:22 Dose: 1 each Magnesium Hydroxide (Milk Of Magnesia) 60 ml PO HS PRN PRN Reason: Constipation Stop: 03/05/17 14:05 Last Admin: 01/05/17 18:42 Dose: 60 ml Miscellaneous (Probiotic Screen) 1 ea MC PRN PRN PRN Reason: PROTOCOL Stop: 03/04/17 11:04 Morphine Sulfate (Morphine) 2 mg IVP Q4HR PRN PRN Reason: Pain (Moderate) Stop: 03/02/17 20:19 Ondansetron HCl (Zofran) 4 mg IV Q8H PRN PRN Reason: Nausea / Vomiting Stop: 03/02/17 20:19 Rivaroxaban (Xarelto) 20 mg PO DAILY [facility] Stop: 03/04/17 08:59 Last Admin: 01/06/17 08:23 Dose: 20 mg Zolpidem Tartrate (Ambien) 10 mg PO HS PRN PRN Reason: Insomnia Stop: 03/02/17 20:19 General: alert HEENT: NC/AT, PERRLA Neck: + JVD Lungs: congested, rales, ronchi Cardiovascular: RRR, Normal S1, Normal S2 Abdomen: soft non-tender, globular, positive bowel sound Extremities: excoriation Neurological: no change Internal Medicine Assmt/Plan - Assessment Assessment: Atrial fibrillation with rapid ventricular rate, right lower extremity pain, obesity, hypertension, congestive heart failure, chronic low back pain, hypokalemia, - Plan Plan: will add digoxin and adjust coreg cont on cardizem drip o2 bronchodilator out of bed 2 d echo noted 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 [facility], spoke [facility] caret[facility] medical deroector dr simons Nutritional Asmnt/Malnutr-PDOC - Dietary Evaluation Malnutrition Findings (Please click <Entered> for more info): Nutritional Asmnt/Malnutrition Start: 01/02/17 14: 29 Text: Status: Complete Freq: Document 01/02/17 14:29 GSUN (Rec: 01/02/17 14:51 [email or web address] [id number]) Nutritional Asmnt/Malnutrition Patient General Information Nutritional Screening High Risk Screening Diagnosis ER: AFib with rapid ventricular rate, right leg sciatic pain Pertinent Medical Hx/Surgical Hx ER: HTN, CHF Subjective Information 66 year old male. Pt was alert and pleasant. Pt stated he is 4months into a 6months prep josiah with professional meal advices for a bariatric surgery at the end of the course. Observed breakfast tray half untouched at bedside , pt stated appetite usually good, currently poor PO due to pain. Pt appeared knowledgeable in nutrition and complient with his meal plan. RD encouraged PO intake while in the hospital, pt agreed. CBW via bedscale 336.5lb, pt report UBW 1wk ago 335lb. Current Diet Order/ Nutrition Support Cardiac Pertinent Medications Maalox, D5 0.45, Morphine, Zofran Pertinent Labs 01/01: total bilirubin 1.8H Nutritional Hx/Data Height 1.85 m Height (Calculated Centimeters) 185.4 Current Weight (lbs) 152.634 kg Weight (Calculated Kilograms) 152.6 Weight (Calculated Grams) 080566.8 Usual body Weight (lbs) 335 [place] Body Weight 184 Weight Status Morbidly Obese GI Symptoms Food Allergies No Skin Integrity/Comment: Haris 19. Skin intact. Estimated Nutritional Goals BEE in Kcals: Adj wt of IBW Calories/Kcals/Kg AdjBW 222lb/100.9kg Kcals Calculated 2523kcal (25kcal/kg) Protein: Adj wt of IBW Protein Calculated 81-101g (0.8-1g/kg) Fluid: ml 2523ml (1ml/kcal) Nutritional Problem 1. Problem Problem Obesity related to Etiology possible energy imbalance aeb Signs/Symptoms: BMI >40, pt is on a meal plan for bariatric surgery Intervention/Recommendation Comments 1. Continue with cardiac diet. Current diet order provides to meet at least 75% of estimated nutritional needs. Pt may request for snacks as needed as long as complient with diet order. Expected Outcomes/Goals Expected Outcomes/Goals 1. PO intake to meet at least 75% of estimated nutritional needs.
[2017-01-06] MEDS: Hydrocodone/APAP 5mg/325mg Tab PO PRN (21:57)
[2017-01-07] MEDS: Lactobacillus Rhamnosus 10 Billion CFU Capsule PO SCH (09:18)
--- NOTE | 2017-01-08 02:06 | Discharge Summary ---
DATE OF DISCHARGE: 01/07/2017 ADDENDUM: REASON FOR DISCHARGE: There were some problems with the nursing . He was supposed to go to [facility], in [place]. They are awaiting for being bed. It is finally being ordered for today. The patient is still bit upset, wanted to go home. Either way, we could write a prescription for him to go home or to be discharged to acute rehabilitation. Apparently, there is a sister who is a nurse and the with physical therapy helping him to walk to the restroom which is 4 or 5 steps, but the patient is unable to do so safely. CONDITION ON DISCHARGE: Fair. DISCHARGE INSTRUCTIONS: The patient to be discharged to acute rehabilitation. JOB# [id number]
== END 2017-01-07 20:05 | DRG 309 ==
LOC: ER 15:58 → ICU 20:35 → TELE 01-04 20:18 → MSI 01-06 12:51
PROVIDERS: ADMIT Internal Medicine; ATTEND Internal Medicine
DX: I48.0 Paroxysmal atrial fibrillation (principal); Z68.41 Body mass index [BMI] 40.0-44.9, adult; I11.0 Hypertensive heart disease with heart failure; I50.9 Heart failure, unspecified; E87.6 Hypokalemia; G89.29 Other chronic pain; M54.31 Sciatica, right side; F17.210 Nicotine dependence, cigarettes, uncomplicated; M54.5 Low back pain; E66.01 Morbid (severe) obesity due to excess calories; W18.39XA Other fall on same level, initial encounter; Y93.89 Activity, other specified; Y92.098 Other place in other non-institutional residence as the place of occurrence of the external cause; Y99.8 Other external cause status
CPT/HCPCS: 36415-UA; 71010-TC; 80048-TC; 80053-TC; 81001-TC; 82607-90; 82746-90; 83735-TC; 83880-TC; 84443-TC; 84484-TC; 85007-TC; 85025-TC; 85027-TC; 85610-TC; 90779; 93005; 94760; 96379; 97530; J0153; J1160; J1644; J2270; J2405; J7030; X3904; Z7610